=== PATIENT | male | born 1970 | race Caucasian/White ===

== ENCOUNTER 2020-06-26 16:41 | Emergency (ER) | payer OTHER ==
[~2020-06-26] VITALS: Ht 170.2 cm; Wt 68.0 kg
--- NOTE | ~2020-06-26 | EMS ---
[address] [address] EMS Patient Care Report Name: JOSÉ FRANCO [id number] Admission: 06/26/20 Attend Phys: Discharge: Date of : 70 Report #: [id number] THIS REPORT FOR: //name// Report Transmitted: 06/26/2020 18:01 EMS Care Summary [facility] Incident [id number] @ 06/26/2020 16:10 Incident Location [address] [place] [address] Patient JOSÉ FRANCO Male, 50 Years 1970 Patient Address [address] [place] [id number] Patient History Kidney Stone, Patient Allergies No known allergies, Patient Medications None Reported, Chief Complaint Sharp, stabbing LLQ, groin and Flank Pain Disposition Transported No Lights/[place] Reason Abdominal Pain/Problems Transported To [facility] Narrative Responded to the above address for a c2 abdominal pain. Upon arrival pt was found laying supine in the back of a cargo trailer, awake, alert, oriented, skin color slightly pale and no apparent injuries. Pt was in obvious pain and unable to hold still. [address] [address] EMS Patient Care Report Name: JOSÉ FRANCO Room #: REG LAZARO Ferrer#: [id number] Admission: 06/26/20 Attend Phys: Discharge: Date of : 70 Report #: [id number] Pt states about an hour ago while mowing he had a sudden onset of sharp stabbing LLQ pain that radiated to his back and groin. Pt states he had a kidney stone 1 month prior that felt like this and had to be broken up and a stent placed, Pt states he just had the stent removed 1 week ago. Pt denies blood with urination and states no pain prior to today. Pt denes other medical hx, allergies or RX meds. Pt states that the pain is 10/10 and making him slightly nauseous. Physical exam as charted. Pt contact, primary, vitals, physical exam, pt assisted to stand and sit on cot. Pt to ambulance, secondary, IV access, fentanyl for pain management with some success transport. . Pt states pain now at 6/10 w/ 200mcg of fentanyl. Radio report. Patient delivered to [facility] one and moved to bed w/ sheet lift. Report to RN and patient care transferred. Initial Vitals @16:36P: 107,BP: 160/59,Pain: 6/10,SpO2: 94,GA Suspected: false @16:33P: 115,SpO2: 91, @16:25P: 117,R: 16,BP: 164/52,Pain: 10/10,GCS: 15,SpO2: 99,Revised Trauma: 12, @16:32P: 118,SpO2: 90, Assessments @16:43MENTAL:Person Oriented,Place Oriented,Time Oriented,Event Oriented,SKIN:HEENT:LUNG SOUNDS:General: Nausea,Left Lower: Tenderness,Left Lower: LORETA,ABDOMEN:General: Nausea,Left Lower: Tenderness,Left Lower: LORETA,PELVIS//GI:LORETA,EXTREMITIES:Left Arm: No Abnormalities,Right Arm: No Abnormalities,Left Leg: No Abnormalities,Right Leg: No Abnormalities,PULSE:NEURO: Impression Kidney stones Procedures @16:25Fentanyl - 100 Micrograms (mcg) - Intravenous (IV)Response: Improved@16:15ALS AssessmentResponse: ImprovedSucceeded@16:21Saline Lock 15cc (20 ga) Site: Forearm-RightResponse: UnchangedSucceeded@16:32Fentanyl - 100 Micrograms (mcg) - Intravenous (IV)Response: Improved@16:20Surgical Mask on PatientResponse: Unchanged Timeline 16:08,Call Received 16:08,Psap Call 16:10,Dispatched 16:11,En Route 16:14,On Scene 16:14,[place] [address] EMS Patient Care Report Name: SALVADORJOSÉ Room #: REG LAZARO Ferrer#: [id number] Admission: 06/26/20 Attend Phys: Discharge: Date of : 70 Report #: [id number] 16:15,ALS Assessment,Response: ImprovedSucceeded, 16:20,Surgical Mask on Patient,Response: Unchanged 16:21,Saline Lock 15cc 20 ga Site: Forearm-Right,Response: UnchangedSucceeded, 16:24,Depart Scene 16:25,Fentanyl - 100 Micrograms (mcg) - Intravenous (IV),Response: Improved 16:25,BP: 164/52 M,PULSE: 117,RR: 16 R,SPO2: 99 Ox,ETCO2: ,BG: ,PAIN: 10,GCS: 15, 16:32,Fentanyl - 100 Micrograms (mcg) - Intravenous (IV),Response: Improved 16:32,BP: / M,PULSE: 118,RR: R,SPO2: 90 Ox,ETCO2: ,BG: ,PAIN: ,GCS: , 16:33,BP: / M,PULSE: 115,RR: R,SPO2: 91 Ox,ETCO2: ,BG: ,PAIN: ,GCS: , 16:34,At Destination 16:36,BP: 160/59 M,PULSE: 107,RR: R,SPO2: 94 Ox,ETCO2: ,BG: ,PAIN: 6,GCS: , 17:05,Call Closed Disclaimer v1.1 Copyright 2020 [employer] This EMS Care Summary contains data elements from the applicable legal record (which may be displayed differently). It is designed to provide pertinent information for the following purposes: continuity of care, clinical quality, and state data reporting. The complete legal record is available to ED staff and administrators of the receiving hospital in [email or web address]'s Patient Tracker. All data is provided "as is."
[2020-06-26 17:20] LABS: ABSOLUTE NEUTROPHILS 5.6 thou/uL (1.4-8.2); BASOPHILS 0.8 % (0.0-2.0); EOSINOPHILS 2.7 % (0.0-3.0); HEMATOCRIT 36.2 % (42.0-52.0); HEMOGLOBIN 11.9 gm/dL (14.0-18.0); LYMPHOCYTES 16.5 % (24.0-44.0); MCH 27.9 pg (26.0-34.0); MCV 84.7 fL (80.0-100.0); MONOCYTES 7.8 % (1.0-8.0); PLATELET COUNT 319 thou/uL (150-400); POLYS 72.2 % (36.0-66.0); RBC 4.28 mil/uL (4.50-6.00); RDW 14.2 % (10.5-14.5); WBC 7.7 thou/uL (4.0-11.0)
[2020-06-26 17:35] LABS: CALCIUM 7.9 mg/dL (8.5-10.1); CREATININE 1.4 mg/dL (0.7-1.3); POTASSIUM 3.3 mmol/L (3.5-5.1)
[2020-06-26 17:39] LABS: ALBUMIN 3.3 g/dL (3.4-5.0); TOTAL BILIRUBIN 0.3 mg/dL (0.2-1.0); TOTAL PROTEIN 6.6 g/dL (6.4-8.2)
[2020-06-26 19:06] LABS: URINE BILIRUBIN NEGATIVE (Negative); URINE BLOOD 3+ (Negative); URINE CLARITY CLEAR; URINE COLOR YELLOW; URINE GLUCOSE-RANDOM* NEGATIVE (Negative); URINE KETONES NEGATIVE (Negative); URINE LEUKOCYTES-REFLEX NEGATIVE (Negative); URINE NITRITE-REFLEX NEGATIVE (Negative); URINE PROTEIN (DIPSTICK) NEGATIVE (Negative); URINE SPECIFIC GRAVITY 1.015 (1.005-1.035); URINE UROBILINOGEN 0.2 E.U./dl (0.2-1.0)
[2020-06-26] MEDS ORDERED: NORCO 5-325 TA1 EAC2 PO (19:12)
[2020-06-26] MEDS ORDERED: ZOFRAN ODT4 MG DISSOLVE (19:12)
[2020-06-26 19:13] LABS: BACTERIA-REFLEX 1-9 Few /HPF (None Seen); SQUAMOUS None Seen /LPF (0-3); URINE RBC >20 Many /HPF (0-2); URINE WBC-REFLEX 0-5 Rare /HPF (0-5)
[2020-06-26 19:14] LABS: CASTS None Seen /LPF (None Seen); CRYSTALS None Seen /LPF (None Seen)
[2020-06-26 19:40] VITALS: BP 136/89
== END 2020-06-26 19:50 | disposition home or self-care (01) ==
LOC: ER 16:41
PROVIDERS: Physician Assistant
DX: N20.0 Calculus of kidney (principal); R11.0 Nausea; Z88.8 Allergy status to other drugs, medicaments and biological substances